=== PATIENT | female | born 1980 | race Caucasian/White ===

== ENCOUNTER 2019-12-22 07:02 | Outpatient (CLI) | payer OTHER ==
--- NOTE | 2019-12-22 09:07 | ULT ---
RIGHT UPPER QUADRANT ULTRASOUND: HISTORY: Right-sided abdominal pain. COMPARISON: 01/03/2016. FINDINGS: Liver echogenicity is somewhat coarse, evidence for fatty change. No evidence of gallstones or gallb ladder wall thickening or pericholecystic fluid. There is 1 focus of ring-down artifact from the gal lbladder with a possible tiny associated polyp or small focus of cholesterosis. Common bile duct 0.4 cm. Visualized right kidney and pancreas are unremarkable. IMPRESSION: Fatty changes in the liver with coarse echogenicity. One possible tiny polyp and associated ring-eladio n artifact, possibly a small focus of cholesterosis. No evidence for other acute process. POS: [facility]
== END 2019-12-22 07:03 | disposition home or self-care (01) ==
LOC: BICULT 07:02
PROVIDERS: ATTEND Nurse Practitioner Family
DX: R10.9 Unspecified abdominal pain (principal); K76.0 Fatty (change of) liver, not elsewhere classified; R93.2 Abnormal findings on diagnostic imaging of liver and biliary tract
CPT/HCPCS: 76705